=== PATIENT | male | born 1950 | race Hispanic/Latino ===

== ENCOUNTER 2018-01-30 10:45 | Inpatient (IN) | payer OTHER ==
--- OUTSIDE RECORDS SUMMARY | 2018-01-30 11:00 | XMS REPORT | Clinical Summary ---
:1950 Author Organization [facility] Address [address] [place] [address] Care Team Providers Name Role Phone Asked, No Pcp Primary Care Provider Unavailable Allergies Active Allergy Reactions Severity Noted Date Comments No Known Drug Allergies 04/01/2016 Current Medications Prescription Sig. Disp. Refills Start Date End Date Status riFAXimin (XIFAXAN) Active 550 mg tablet Lactobacillus Active acidoph-L.bulgar (LACTINEX) 100 million cell tablet multivitamin capsule Active ferrous sulfate 325 Active (65 FE) MG tablet furosemide (LASIX) 20 Take 1 tablet 90 tablet 3 05/08/2017 Active mg tabletIndications: (20 mg total) PORTILLO (nonalcoholic by mouth 3 steatohepatitis), (three) times Other hypervolemia, a week. Awaiting liver transplant lactulose 20 gram/30 Take 15 mL 90 mL 11 08/07/2017 Active mL (10 g total) solutionIndications: by mouth 3 Hepatic encephalopathy (three) times a day. spironolactone Take 2 90 tablet 3 09/17/2017 Active (ALDACTONE) 50 MG tablets (100 tabletIndications: mg total) by PORTILLO (nonalcoholic mouth daily. steatohepatitis), Other hypervolemia, Gastrointestinal hemorrhage, unspecified gastrointestinal hemorrhage type pantoprazole Take 1 tablet 90 tablet 3 09/17/2017 Active (PROTONIX) 40 MG EC (40 mg total) tabletIndications: by mouth PORTILLO (nonalcoholic daily. steatohepatitis), Other hypervolemia, Gastrointestinal hemorrhage, unspecified gastrointestinal hemorrhage type pantoprazole Discontinued (PROTONIX) 40 MG EC 7 tablet furosemide (LASIX) 20 Discontinued MG tablet 7 spironolactone Discontinued (ALDACTONE) 50 MG 7 tablet lactulose 20 gram/30 Take 15 mL 90 mL 11 07/13/2016 Discontinued mL solution (10 g total) 7 by mouth 3 (three) times a day. spironolactone Take 2 90 tablet 3 03/22/2017 Discontinued (ALDACTONE) 50 MG tablets (100 7 tabletIndications: mg total) by PORTILLO (nonalcoholic mouth daily. steatohepatitis), Other hypervolemia lactulose 20 gram/30 Take 15 mL 90 mL 11 08/05/2017 Discontinued mL (10 g total) 7 solutionIndications: by mouth 3 Hepatic encephalopathy (three) times a day. lactulose 20 gram/30 Take 15 mL 90 mL 11 08/07/2017 Discontinued mL (10 g total) 7 solutionIndications: by mouth 3 Hepatic encephalopathy (three) times a day. Active Problems Problem Noted Date PORTILLO (nonalcoholic steatohepatitis) 08/27/2016 Encounters Date Type Specialty Care Team Description 01/17/2018 Documentation Transplant Adamaris Jimenez RN MELD score updated to 14;recert due 04/19/18 01/15/2018 Hospital Encounter Transplant Jesús Live MD 01/15/2018 Hospital Encounter Transplant Jesús Live, Awaiting liver transplant; Cancer screening; PORTILLO (nonalcoholic steatohepatitis) 01/15/2018 Hospital Encounter Radiology Jesús Live, Awaiting liver transplant; Cancer screening; PORTILLO (nonalcoholic steatohepatitis) 12/04/2017 Hospital Encounter Transplant Jesús Live, Canceled ( Weather) 12/02/2017 Procedure Pass Radiology 12/02/2017 Orders Only Transplant Adamaris Jimenez RN PORTILLO (nonalcoholic steatohepatitis) (Primary Dx); Cancer screening; Awaiting liver transplant 09/17/2017 Refill Transplant Adamaris Jimenez RN Med Refill 08/09/2017 Telephone Transplant Ally Cunningham, Rx Clarification MA 08/07/2017 Refill Transplant Adamaris Jimenez RN Med Refill 08/05/2017 Refill Transplant Adamairs Jimenez RN Med Refill 07/16/2017 Telephone Transplant Adamaris Jimenez RN cancel clinic 07/08/2017 Orders Only Transplant Jesús Live MD 07/01/2017 Orders Only Transplant Jesús Live MD 06/26/2017 Telephone Transplant Sarah Correa, MELD update notification RN 06/26/2017 Documentation Transplant Sarah Correa, MELD score updated to 16, RN recert due 09/26/17 06/24/2017 Orders Only Transplant Jesús Live MD 06/18/2017 Telephone Transplant Sarah Correa, MELD update notification RN 06/18/2017 Documentation Transplant Sarah Correa, MELD score updated to 15, RN recert due 09/18/17 06/17/2017 Orders Only Transplant Jesús Live MD 06/13/2017 Telephone Transplant Correa Sarah, Upcoming appointments RN 06/11/2017 Abstract Transplant Sarah Correa, RN 06/11/2017 Transcribe Orders Transplant Correa Sarah, Awaiting organ transplant status (Primary Dx); RN PORTILLO (nonalcoholic steatohepatitis); Other cirrhosis of liver 06/07/2017 Telephone Transplant Adamaris Jimenez RN 05/07/2017 Refill Transplant Adamaris Jimenez RN Med Refill 05/07/2017 Telephone Transplant Jesus Diaz MA Med Refill 03/22/2017 Refill Transplant Adamaris Jimenez RN Med Refill 03/07/2017 Abstract Transplant Adamaris Jimenez RN after 01/29/2017 Social History Tobacco Use Types Packs/Day Years Used Date Never Assessed Sex Assigned at Date Recorded Not on file Last Filed Vital Signs Vital Sign Reading Time Taken Blood Pressure 133/64 01/15/2018 9:15 AM WASHING MACHINE REPAIRER Pulse 76 01/15/2018 9:15 AM WASHING MACHINE REPAIRER Temperature 36.7 C (98 F) 01/15/2018 9:15 AM WASHING MACHINE REPAIRER Respiratory Rate 20 01/15/2018 9:15 AM WASHING MACHINE REPAIRER Oxygen Saturation 100% 01/15/2018 9:15 AM WASHING MACHINE REPAIRER Inhaled Oxygen Concentration - - Weight 126 kg (278 lb) 01/15/2018 9:15 AM WASHING MACHINE REPAIRER Height 180.3 cm (5' 11") 01/15/2018 9:15 AM WASHING MACHINE REPAIRER Body Mass Index 38.77 01/15/2018 9:15 AM WASHING MACHINE REPAIRER Plan of Treatment Health Maintenance Due Date Last Done Comments COLONOSCOPY 2001 ZOSTER VACCINE 2011 PNEUMOCOCCAL POLYSACCHARIDE VACCINE AGE 65 AND OVER 2016 PNEUMOCOCCAL-13 2016 INFLUENZA VACCINE 06/18/2017 Results Smear review (01/15/2018 9:05 AM) Component Value Ref Range Platelet slide review Mkd decreased (A) Anisocytosis Moderate Tear drop cells Occasional Ovalocytes Moderate Specimen Performing Laboratory [facility] DEPARTMENT OF PATHOLOGY AND [facility] [address] [place] [id number] Estimated GFR (01/15/2018 9:05 AM)Only the most recent of2 resultswithin the time period is included. Component Value Ref Range GFR Non Af Amer 55 (A) mL/min/1.73 m2 GFR Af Amer 67 mL/min/1.73 m2 Comment: Chronic kidney disease: <60 mL/min/1.73m2 Kidney failure: <15 mL/min/1.73m2 The estimated GFR is calculated from the IDMS-traceable Modification of Diet in Renal Disease Equation. The accuracy of the calculation is poor when the creatinine is normal. Calculated values >90 mL/min/1.73m2 are not reported. This equation has not been validated in children (<18 years), women, the elderly (>70 years), or ethnic groups other than Caucasians and Americans. Specimen Performing Laboratory Plasma specimen [facility] DEPARTMENT OF PATHOLOGY AND [facility] [address] [place] [address]59 Alpha fetoprotein (01/15/2018 9:05 AM)Only the most recent of5 resultswithin the time period is included. Component Value Ref Range Alpha fetoprotein 3.1 0.0 - 8.3 ng/mL Comment: The Davide 8000 AFP immunoassay was used. Results obtained with different assay methods or kits should not be used interchangeably and may be different. Specimen Performing Laboratory Serum [facility] DEPARTMENT OF PATHOLOGY AND [facility] [address] [place] [phone] Partial thromboplastin time, activated (01/15/2018 9:05 AM) Component Value Ref Range PTT 34.3 23.0 - 36.0 sec Comment: PTT therapeutic range for unfractionated heparin is 61.0-112.0 seconds which corresponds to Anti-Xa 0.3-0.7 U/ml. Specimen Performing Laboratory Blood [facility] DEPARTMENT OF PATHOLOGY AND [facility] [address] [place] [address] Prothrombin time with INR (01/15/2018 9:05 AM)Only the most recent of5 resultswithin the time period is included. Component Value Ref Range Prothrombin time 17.1 (H) 12.0 - 15.0 sec INR 1.4 Comment: The International Normalized Ratio (INR) is a therapeutic monitoring tool for patients who are stable on oral anticoagulant therapy. An INR of 2.0-3.0 is suggested for deep vein thrombosis/pulmonary embolism. Specimen Performing Laboratory Blood [facility] DEPARTMENT OF PATHOLOGY AND [facility] [address] [place] [address] CBC with platelet and differential (01/15/2018 9:05 AM)Only the most recent of5 resultswithin the time period is included. Component Value Ref Range WBC 3.17 (L) 4.50 - 11.00 k/uL RBC 3.53 (L) 4.40 - 6.00 m/uL HGB 11.3 (L) 14.0 - 18.0 g/dL HCT 32.9 (L) 41.0 - 51.0 % MCV 93.2 82.0 - 100.0 fL MCH 32.0 27.0 - 34.0 pg MCHC 34.3 31.0 - 37.0 g/dL RDW - SD 50.3 37.0 - 55.0 fL MPV 12.1 8.8 - 13.2 fL Platelet count 43 (L) 150 - 400 k/uL Nucleated RBC 0.00 /100 WBC Neutrophils 56.9 39.0 - 69.0 % Lymphocytes 26.8 25.0 - 45.0 % Monocytes 10.1 (H) 0.0 - 10.0 % Eosinophils 4.7 0.0 - 5.0 % Basophils 0.9 0.0 - 1.0 % Immature granulocytes 0.6Comment: "Immature granulocytes" 0.0 - 1.0 % (promyelocytes, myelocytes, metamyelocytes) Specimen Performing Laboratory Blood [facility] DEPARTMENT OF PATHOLOGY AND GENOMIC MEDICINE [address] [place] [address] Hepatic function panel (01/15/2018 9:05 AM)Only the most recent of5 resultswithin the time period is included. Component Value Ref Range Albumin 3.2 (L) 3.5 - 5.0 g/dL Total bilirubin 1.4 (H) 0.0 - 1.2 mg/dL Bilirubin direct 0.3 0.0 - 0.3 mg/dL Alkaline phosphatase 88 40 - 129 U/L Protein 7.1 6.3 - 8.3 g/dL Comment: 4.6-7.0 g/dL 1 week 4.4-7.6 g/dL 7 months-1year5.1-7.3 g/dL 1-2 years5.6-7.5 g/dL >3 years6.0-8.0 g/dL 18-150 6.3-8.3 g/dL ALT 16 5 - 50 U/L AST 34 10 - 50 U/L Specimen Performing Laboratory Plasma specimen [facility] DEPARTMENT OF PATHOLOGY AND GENOMIC MEDICINE [address] [place] [address] 99097 Basic metabolic panel (01/15/2018 9:05 AM)Only the most recent of5 resultswithin the time period is included. Component Value Ref Range Sodium 138 135 - 148 mEq/L Potassium 4.1 3.5 - 5.0 mEq/L Chloride 102 98 - 112 mEq/L CO2 23 (L) 24 - 31 mEq/L Anion gap 13 7 - 15 mEq/L Comment: Starting from February , anion gap calculation no longer incorporates potassium. Please note the change. BUN 16 8 - 23 mg/dL Creatinine 1.3 (H) 0.7 - 1.2 mg/dL Glucose 99 65 - 99 mg/dL Calcium 9.4 8.8 - 10.2 mg/dL Specimen Performing Laboratory Plasma specimen [facility] DEPARTMENT OF PATHOLOGY AND GENOMIC MEDICINE [address] [place] [address]502 MRI Abdomen W Wo Contrast (01/15/2018 8:20 AM) Specimen Performing Laboratory [facility] [address] [place] [address]642 Narrative EXAMINATION:MRI ABDOMEN W WO CONTRAST CLINICAL HISTORY:Z76.82 Awaiting organ transplant status, Z12.9 Encounter for screening for malignant neoplasmsite unspecified, HCC Screen COMPARISON:December 19, 2016 TECHNIQUE: Multiplanar, multisequence MRI of the abdomen with and without intravenous gadolinium. FINDINGS: The liver is cirrhotic. No suspicious mass. There are couple of punctate cysts. Status post TIPS. Main portal vein is patent. 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 Moderate splenomegaly. No ascites. Unremarkable gallbladder and pancreas. No biliary dilatation. No renal or adrenal mass. No ascites. IMPRESSION: 1.No evidence of HCC. 2.Status post TIPS. Patent main portal vein and stable chronic nonocclusive SMV thrombus. [facility]-[id number] Procedure Note Hm Interface, Radiology Results Incoming - 01/15/2018 9:21 AM WASHING MACHINE REPAIRER EXAMINATION: MRI ABDOMEN W WO CONTRAST CLINICAL HISTORY: Z76.82 Awaiting organ transplant status, Z12.9 Encounter for screening for malignant neoplasm site unspecified, HCC Screen COMPARISON: December 19, 2016 TECHNIQUE: Multiplanar, multisequence MRI of the abdomen with and without intravenous gadolinium. FINDINGS: The liver is cirrhotic. No suspicious mass. There are couple of punctate cysts. Status post TIPS. Main portal vein is patent. 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 Moderate splenomegaly. No ascites. Unremarkable gallbladder and pancreas. No biliary dilatation. No renal or adrenal mass. No ascites. IMPRESSION: 1. No evidence of HCC. 2. Status post TIPS. Patent main portal vein and stable chronic nonocclusive SMV thrombus. [facility]-[id number] Creatinine level (01/15/2018 7:53 AM) Component Value Ref Range Creatinine 1.3 (H)Comment: Testing performed on the ISappirisT instrument 0.7 - 1.2 mg/dL by PEDRO Napier [id number] Specimen Performing Laboratory Plasma specimen [facility] DEPARTMENT OF PATHOLOGY AND GENOMIC MEDICINE [address] [place] [phone] after 01/29/2017 Insurance Payer Benefit Plan / Group Subscriber ID Type Phone Address MEDICARE MEDICARE PART A AND B xxxxxxxxxx Medicare [place], [place] AETNA AETNA HMO,POS,EPO, MC/EC xxxxxxxxxx HMO Work: [address] [place], [place] [phone] Home: [id number] [address] Transplant Self 1950 Work: [id number] [facility] [phone] Home: [id number]
[2018-01-30] MEDS ORDERED: D50W 25 GM/50 ML SYRINGE IV PRN (11:27)
[2018-01-30] MEDS ORDERED: GLUCAGON 1 MG/VIAL IM PRN (11:27)
[2018-01-30] MEDS: INSULIN -REGULAR HUMAN 50 UNIT/0.5 ML ML SQ SCH ×3 (11:30→21:00)
[2018-01-30 12:04] LABS: Absolute Lymphocytes (CBC) 0.6 K/uL (0.7-4.9); Absolute Monocytes 0.4 K/uL (0.1-1.3); Absolute Neutrophil 5.3 K/uL (1.8-8.0); Basophils % 0.5 % (0-1.3); Eosinophils % 0.3 % (0-4.4); Hematocrit 32.8 % (39.6-49.0); Lymphocytes % 8.8 % (15.3-44.8); MCH 31.2 pg (27.0-35.0); MCV 90.7 fL (80-100); MPV 10.6 fL (7.6-11.3); Monocytes % 6.7 % (3.3-12.3); RBC Red Blood Cell Count 3.62 M/uL (4.33-5.43)
[2018-01-30 12:10] LABS: Potassium 4.7 mEq/L (3.6-5.0)
[2018-01-30 12:13] LABS: Albumin 3.2 g/dL (3.2-5.5); Bilirubin Total 4.1 mg/dL (0.3-1.2); Protein, Total 6.4 g/dL (6.0-8.3)
[2018-01-30 12:42] LABS: Blood Morphology Comment NOT SEEN (NOT SEEN); Platelet Estimate DECR
[2018-01-30 12:43] LABS: Toxic Granulation NOTED
[2018-01-30] MEDS: VANCOMYCIN 2 GM in NA CHLORIDE 0.9% 500 ML IVPB SCH (14:19)
[2018-01-30] MEDS ORDERED: PNEUMOCOCCAL VACCINE 0.5 ML IMVAC ONE (15:00)
[2018-01-30 15:16] VITALS: BMI 39.6
--- NOTE | 2018-01-30 20:01 | RAD REPORT ---
EXAM DESCRIPTION: [facility] [employer]01/30/2018 7:52 pm CLINICAL HISTORY: Right leg pain and swelling. COMPARISON: None. FINDINGS: Right common femoral, superficial femoral, popliteal and right posterior tibial veins are compressible and demonstrate augmentation. Doppler demonstrates good flow. IMPRESSION: No evidence of deep venous thrombosis involving the right lower extremity.
[2018-01-30 20:11] LABS: Urine Appearance CLEAR; Urine Bilirubin NEGATIVE (NEG); Urine Blood NEGATIVE (NEG); Urine Color DK YELLOW; Urine Glucose NEGATIVE (NEG); Urine Protein NEGATIVE (NEG); Urine Urobilinogen 0.2 mg/dL (0.2-1.0)
[2018-01-30 20:24] LABS: Urine Bacteria <20 /HPF (NONE SEEN); Urine Culture Reflex Order NOT NEEDED; Urine RBC <5 /HPF (NONE SEEN)
[2018-01-30] MEDS: Rifaximin 550 MG Tab PO SCH (20:57)
[2018-01-30] MEDS ORDERED: LACTULOSE 30 GM PO SCH (21:00)
[2018-01-30] MEDS: LACTULOSE 20 GM/30 ML UCUP PO SCH (21:01)
--- NOTE | 2018-01-31 04:13 | HP ---
Date of Admission: 01/30/2018 Chief Complaint: Right leg pain, swelling. History Of Present Illness: A 67-year-old male, who was brought to the office because of continued p ain, swelling of the right leg. He was seen in the office and he was found to have evidence of cellu litis. The patient has chronic venous insufficiency. He was admitted and later he was in the [facility] for prolonged time recuperating from the cellulitis. In view of previous experience, the patient is admitted for IV antibiotic therapy, so that he would not be put at risk of previous [facility] experience in controlling his infection. The patient's other medical problems include a type 2 d iabetes, cirrhosis of the liver, and hypertension. Past Medical History: Positive for cirrhosis related to fatty liver, hypertension, type 2 diabetes, morbid obesity. Family History: Noncontributory. Personal History: Nonsmoker home. Home Medicines: Please refer to the chart. Review of Systems: No chest pain, shortness of breath. Physical Examination: General: Revealed a 67-year-old male, in mild to moderate pain. HEENT: No icterus. Neck: Supple, JVD negative. Chest: Clear. Heart: Regular. Abdomen: Pendulous, nontender. Extremities: Diffuse area of swelling of the right leg starting from below the knee to the foot. Pe marlo pulse is difficult to feel on account of swelling. There is diffuse tenderness. Assessment: 1.Cellulitis of right leg. 2.Type 2 diabetes. 3.Cirrhosis of the liver. 4.Hypertension. 5.Chronic venous insufficiency. Plan: IV vancomycin, pending Infectious Disease consultation. The patient was taken care of by Dr. Lundberg in the past. For the same problem, he is consulted and based on his recommendation, he will b e treated. He is on sliding scale. His platelet count is low; however, this is part of his cirrhosi s. He is not a candidate for any anticoagulation on account of his thrombocytopenia. AUDIE/AUSTYN Voice ID: [id number]
[2018-01-31] MEDS: INSULIN -REGULAR HUMAN 50 UNIT/0.5 ML ML SQ SCH ×4 (07:30→22:41)
[2018-01-31] MEDS: PANTOPRAZOLE 40MG TABLET PO SCH (09:17)
[2018-01-31] MEDS: Rifaximin 550 MG Tab PO SCH ×2 (09:17→21:59)
[2018-01-31] MEDS: SPIRONOLACTONE 100 MG TAB PO SCH (09:17)
[2018-01-31] MEDS: LACTULOSE 20 GM/30 ML UCUP PO SCH ×3 (09:17→21:59)
[2018-01-31] MEDS: VANCOMYCIN 2 GM in NA CHLORIDE 0.9% 500 ML IVPB SCH (14:53)
--- NOTE | 2018-02-01 00:18 | PN ---
The patient's leg looks better. It is less swollen and less painful. The patient has low platelet c ount. Lovenox cannot be given. The patient will be continued on the same management. AUDIE/AUSTYN Voice ID: [id number] Report ID: [id number]
[2018-02-01] MEDS: INSULIN -REGULAR HUMAN 50 UNIT/0.5 ML ML SQ SCH ×4 (07:30→20:48)
[2018-02-01] MEDS: LACTULOSE 20 GM/30 ML UCUP PO SCH ×3 (09:37→20:49)
[2018-02-01] MEDS: Rifaximin 550 MG Tab PO SCH ×2 (09:37→20:47)
[2018-02-01] MEDS: PANTOPRAZOLE 40MG TABLET PO SCH (09:38)
[2018-02-01] MEDS: SPIRONOLACTONE 100 MG TAB PO SCH (09:40)
[2018-02-01] MEDS: VANCOMYCIN 2 GM in NA CHLORIDE 0.9% 500 ML IVPB SCH (15:19)
--- NOTE | 2018-02-01 16:50 | PN ---
The patient is doing okay. However, he has no vesicle formation on the right leg, and there is still erythema around these vesiculation. I told the patient to evaluate the leg pending infectious disea se consult. He will be continued on vancomycin. AUDIE/AUSTYN Voice ID: [id number] Report ID: [id number]
[2018-02-01 18:34] LABS: Urine Appearance CLEAR; Urine Bilirubin NEGATIVE (NEG); Urine Blood NEGATIVE (NEG); Urine Color YELLOW; Urine Glucose NEGATIVE (NEG); Urine Protein NEGATIVE (NEG); Urine Urobilinogen 0.2 mg/dL (0.2-1.0); Urine pH 5.5 (5.0-7.0)
[2018-02-01 18:36] LABS: Urine Microscopic Reflex NO UMIC
[2018-02-02] MEDS: INSULIN -REGULAR HUMAN 50 UNIT/0.5 ML ML SQ SCH ×4 (07:30→21:18)
[2018-02-02] MEDS: LACTULOSE 20 GM/30 ML UCUP PO SCH ×3 (08:45→21:00)
[2018-02-02] MEDS: SPIRONOLACTONE 100 MG TAB PO SCH (08:46)
[2018-02-02] MEDS: PANTOPRAZOLE 40MG TABLET PO SCH (08:47)
[2018-02-02] MEDS: Rifaximin 550 MG Tab PO SCH ×2 (08:48→21:18)
[2018-02-02] MEDS: VANCOMYCIN 2 GM in NA CHLORIDE 0.9% 500 ML IVPB SCH (14:25)
[2018-02-03 06:07] LABS: Potassium 4.1 mEq/L (3.6-5.0)
[2018-02-03] MEDS: INSULIN -REGULAR HUMAN 50 UNIT/0.5 ML ML SQ SCH ×4 (07:30→21:00)
[2018-02-03] MEDS: PANTOPRAZOLE 40MG TABLET PO SCH (09:03)
[2018-02-03] MEDS: SPIRONOLACTONE 100 MG TAB PO SCH (09:04)
[2018-02-03] MEDS: Rifaximin 550 MG Tab PO SCH ×2 (09:04→22:15)
[2018-02-03] MEDS: LACTULOSE 20 GM/30 ML UCUP PO SCH ×3 (09:08→21:00)
[2018-02-03] MEDS: VANCOMYCIN 2 GM in NA CHLORIDE 0.9% 500 ML IVPB SCH (14:15)
--- NOTE | 2018-02-03 21:48 | P.PN ---
Subjective Date of Service: 02/03/18 Chief Complaint: RIGHT LEG PAIN. SWELLING Subjective: Improving Review of Systems 10-point ROS is otherwise unremarkable General: Weakness, Malaise Integumentary: As per HPI Physical Examination - Vital Signs Temperature: 98.2 F Blood Pressure: 131/61 Pulse: 82 Respirations: 18 Pulse Ox (%): 99 - Physical Exam General: Mild distress HEENT: Atraumatic, PERRLA, EOMI Neck: Supple, JVD not distended Respiratory: Clear to auscultation bilaterally, Normal air movement Cardiovascular: Regular rate/rhythm, Normal S1 S2, Edema Gastrointestinal: Normal bowel sounds, No tenderness Musculoskeletal: No tenderness Integumentary: No rashes, Erythema, Warmth (R LEG, ON TOP OF CHRONIC HEMOSIDERINE PIGMENTATION.) Neurological: Normal speech, Normal tone, Normal affect Lymphatics: No axilla or inguinal lymphadenopathy - Studies Laboratory Data (last 24 hrs) 02/03/18 05:26: Sodium 135, Potassium 4.1, BUN 22 H, Creatinine 1.20, Glucose 140 H Medications List Reviewed: Yes Assessment And Plan - Current Problems (Diagnosis) (1) Cellulitis of leg, right Onset Date: 01/31/18 Current Visit: Yes Status: Acute Plan: R LEG CELLULITIS IV VANCOMYCIN STILL NOT READY FOR DC. (2) Cirrhosis of liver Onset Date: 01/31/18 Current Visit: Yes Status: Acute
[2018-02-04] MEDS: INSULIN -REGULAR HUMAN 50 UNIT/0.5 ML ML SQ SCH ×4 (07:30→20:55)
[2018-02-04] MEDS: PANTOPRAZOLE 40MG TABLET PO SCH (08:31)
[2018-02-04] MEDS: SPIRONOLACTONE 100 MG TAB PO SCH (08:31)
[2018-02-04] MEDS: LACTULOSE 20 GM/30 ML UCUP PO SCH ×3 (08:31→21:00)
[2018-02-04] MEDS: Rifaximin 550 MG Tab PO SCH ×2 (08:32→21:19)
[2018-02-04] MEDS: VANCOMYCIN 2 GM in NA CHLORIDE 0.9% 500 ML IVPB SCH (13:27)
--- NOTE | 2018-02-04 16:26 | CON ---
History Of Present Illness: This is a 67-year-old male, coming in with cellulitis of right lower ext remity, currently being treated with vancomycin. The patient denies any headache, nausea, vomiting, chest pain, abdominal pain, constipation, or diarrhea. Feeling better since yesterday. Past Medical History: Includes liver cirrhosis, hypertension, diabetes mellitus, morbid obesity. Medications: Include vancomycin. See MARs for other medication. Allergies: NO KNOWN DRUG ALLERGIES. Review of Systems: A 10-point review was performed. Physical Examination: General: This is a 67-year-old male, lying in bed, not in any acute cardiopulmonary distress. Vital Signs: Temperature 97, pulse 90, respiration 18, blood pressure 113/66. HEENT: Unremarkable. Neck: Supple. Lungs: Basal crackles. Heart: S1, S2. Regular. Abdomen: Soft, nontender. Bowel sounds positive. Extremity: 2+ edema right leg with erythematous changes and increased warmth and tenderness. Laboratory Data: Shows WBC 6.4, hemoglobin 11.3, platelets are 39,000. Chemistry shows sodium 135, potassium 4.1, chloride 106, bicarb 23. BUN 22, creatinine 1.2, glucose is 140. Microbiology Data: Not available. Diagnostic Data: Venous studies done of the right leg shows no evidence of DVT. Assessment And Plan: Cellulitis of right lower extremity. The patient is having loose motions secon shania to lactulose for liver cirrhosis and for ammonia level. We will recommend to continue total cou rse of 14 days of IV antibiotic with vancomycin q.24 hours. We will follow the patient as needed. Thank your Dr. Pérez for consult. NF/LOYL Voice ID: [id number] Report ID: [id number]
--- NOTE | 2018-02-04 20:26 | PN ---
The patient has been seen by the Infectious Disease sediment remediation consultant. He recommends another 9 days of IV a ntibiotic. The patient will likely be discharged on outpatient home antibiotic. 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 ZACHARY Voice ID: [id number] Report ID: [id number]
[2018-02-04 20:56] LABS: MPV 9.8 fL (7.6-11.3)
[2018-02-04 21:45] LABS: Platelet Estimate DECR
[2018-02-04 23:36] VITALS: O2SAT 99
[2018-02-05] MEDS: INSULIN -REGULAR HUMAN 50 UNIT/0.5 ML ML SQ SCH ×3 (07:30→16:30)
--- NOTE | 2018-02-05 09:09 | RAD REPORT ---
EXAM DESCRIPTION: RAD - Chest Single View - 02/05/2018 4:07 am CLINICAL HISTORY: Device placement PICC line placement COMPARISON: 2012 FINDINGS: A PICC line has been inserted with its tip in the superior vena cava. The lungs appear clear of acute infiltrate. The heart is normal size. IMPRESSION: PICC line with its tip in the superior vena cava
[2018-02-05] MEDS: LACTULOSE 20 GM/30 ML UCUP PO SCH ×2 (10:10→13:18)
[2018-02-05] MEDS: SPIRONOLACTONE 100 MG TAB PO SCH (10:10)
[2018-02-05] MEDS: PANTOPRAZOLE 40MG TABLET PO SCH (10:10)
[2018-02-05] MEDS: Rifaximin 550 MG Tab PO SCH (10:11)
[2018-02-05] MEDS: VANCOMYCIN 2 GM in NA CHLORIDE 0.9% 500 ML IVPB SCH (14:30)
[2018-02-05] MEDS ORDERED: TRAMADOL HCL 50 MG TAB PO ONE (15:02)
[2018-02-05 20:55] VITALS: BP 135/63; TEMP 97.8
--- NOTE | 2018-02-17 01:20 | DS ---
Date of Discharge: 02/05/2018 Final Diagnoses: 1.Cellulitis right leg. 2.Cirrhosis of the liver. 3.Type 2 diabetes. 4.Hypertension. 5.Chronic venous insufficiency. Hospital Course: This patient is known to have chronic venous insufficiency. He had cellulitis of t he leg in the past. At this time he came because of the right leg pain and swelling. The patient wa s started on IV vancomycin and elevation of the leg. The patient was seen by Dr. Lundberg and he felt that 1 week of IV antibiotic would not be enough for his cellulitis. At this point, he was discharge d with outpatient IV antibiotic therapy and follow up in the office. Laboratory: Please refer to the chart. AUDIE/AUSTYN Voice ID: [id number] Report ID: [id number]
== END 2018-02-05 20:45 | disposition home health service (06) | DRG 603 ==
LOC: 4TH 10:57
PROVIDERS: ADMIT Internal Medicine; ATTEND Internal Medicine
PROC: 02HV33Z Insertion of Infusion Device into Superior Vena Cava, Percutaneous Approach (ICD-10-PCS; principal; 2018-02-05)
DX: L03.115 Cellulitis of right lower limb (principal); E11.9 Type 2 diabetes mellitus without complications; K74.60 Unspecified cirrhosis of liver; I10 Essential (primary) hypertension; E66.01 Morbid (severe) obesity due to excess calories; Z68.39 Body mass index [BMI] 39.0-39.9, adult
CPT/HCPCS: 36415; 71045; 80048; 80053; 80202; 81001; 81003; 82962; 85025; 85049; 93971